=== PATIENT | female | born 1985 | race Caucasian/White ===

== ENCOUNTER 2017-04-20 15:52 | Emergency (ER) | payer OTHER ==
[~2017-04-20] VITALS: Ht 162.6 cm; Wt 68.9 kg
[2017-04-20] MEDS ORDERED: IV NORMAL SALINE 1,000ML 1,000 ML IV SCH (16:16)
[2017-04-20] MEDS ORDERED: ONDANSETRON PF 4 MG/2 ML VIAL. IV ONE (16:30)
[2017-04-20 16:46] LABS: BASO % 0 % (0-3); EOS % 1 % (0-3); HEMATOCRIT 41.3 % (36.0-47.0); HEMOGLOBIN 14.4 g/dL (12.0-15.5); LYMPH # 0.7 x10^3/uL (1.0-4.8); LYMPH % 13 % (24-48); MEAN CORPUSCULAR HEMOGLOBIN 31 pg (25-35); MEAN CORPUSCULAR HGB CONC 35 g/dL (31-37); MEAN CORPUSCULAR VOLUME 90 fL (79-100); MONO # 0.5 x10^3/uL (0.0-1.1); MONO % 10 % (0-9); NEUT # 4.1 x10^3uL (1.8-7.7); NEUT % 76 % (31-73); PLATELET COUNT 243 x10^3/uL (140-400); RED BLOOD COUNT 4.58 x10^6/uL (3.50-5.40); RED CELL DISTRIBUTION WIDTH 13.8 % (11.5-14.5); WHITE BLOOD COUNT 5.4 x10^3/uL (4.0-11.0)
[2017-04-20 16:57] LABS: ALBUMIN 3.6 g/dL (3.4-5.0); ALBUMIN/GLOBULIN RATIO 1.1 (1.0-1.7); CREATININE 0.6 mg/dL (0.6-1.0); GFR 118.2; POTASSIUM 3.7 mmol/L (3.5-5.1); TOTAL BILIRUBIN 0.5 mg/dL (0.2-1.0); TOTAL PROTEIN 6.8 g/dL (6.4-8.2)
--- NOTE | 2017-04-20 17:47 | PHYS DOC ---
Past History Past Medical History: No Pertinent History Past Surgical History: Appendectomy Alcohol Use: None Drug Use: None Adult General Chief Complaint Chief Complaint: NAUSEA/VOMITING/DIARRHEA HPI HPI Patient is a 31-year-old female who is 9 weeks sent from clinic for evaluation of nausea, vomiting, diarrhea, and abdominal pain. Patient has had quite a bit of vomiting and diarrhea for about 2 days. She's also had some pain in her upper mid abdomen and right upper quadrant for about 2-3 days, intermittent. The pain worsens when she eats. She has had some pain similar to this off and on. In August, she had right-sided abdominal pain and ended up having a diagnosis of acute appendicitis and had appendectomy. She's not sure if this pain today is similar to that pain in August or not, it might be. She may have had a couple of episodes similar since then but it has not bothered her a lot until the last couple of days. Patient denies fever or chills. No blood in her vomit. Patient is 9 weeks . She is a schoolteacher. No one else at home is sick. She has seen an OB doctor and everything is going well with her . She has not had a gallbladder ultrasound and has not had gallbladder evaluation. Review of Systems Review of Systems Constitutional: Denies fever or chills [] GI: As in history of present illness : Denies dysuria or hematuria ; she is 9 weeks Current Medications Current Medications Current Medications Medications (Trade) Dose Ordered Sig/Steven Start Time Stop Time Status Last Admin Dose Admin Ondansetron HCl (Zofran) 4 mg 1X ONCE 04/20/17 16:30 04/20/17 16:31 DC 04/20/17 16:30 4 MG Sodium Chloride 1,000 ml @ 1,000 mls/hr Q1H 04/20/17 16:16 04/20/17 17:15 DC 04/20/17 16:16 1,000 MLS/HR Allergies Allergies Allergies Coded Allergies Type Severity Reaction Last Updated Verified cefaclor Allergy Unknown 04/20/17 Yes Physical Exam Physical Exam Constitutional: Well developed, well nourished, no acute distress, non-toxic appearance. Alert, mentating normally, warm and dry. HENT: Normocephalic, atraumatic, bilateral external ears normal, nose normal. [ ] Eyes: conjunctiva normal, no discharge. [] Neck: Normal range of motion, no stridor. [] Cardiovascular:Heart rate regular rhythm, no murmur [] Lungs & Thorax: Bilateral breath sounds clear to auscultation [] Abdomen: Bowel sounds normal, soft, nondistended, no masses, no pulsatile masses. Mild tenderness to palpation in the upper mid abdomen, slightly lower than the epigastrium, and also in the right upper quadrant. Not necessarily positive Diana's but she does have right upper quadrant tenderness. Liver, gallbladder are not palpable. No rebound or guarding. Skin: Warm, dry, no erythema, no rash. [] Extremities: No tenderness, no cyanosis, no clubbing, ROM intact, no edema. [] Neurologic: Alert and oriented X 3, normal motor function, normal sensory function, no focal deficits noted. [] Current Patient Data Vital Signs Vital Signs Date Time Temp Pulse Resp B/P (MAP) Pulse Ox O2 Delivery O2 Flow Rate FiO2 04/20/17 16:06 98.3 74 20 97 Room Air Lab Results Laboratory Tests Test 04/20/17 16:30 White Blood Count 5.4 x10^3/uL (4.0-11.0) Red Blood Count 4.58 x10^6/uL (3.50-5.40) Hemoglobin 14.4 g/dL (12.0-15.5) Hematocrit 41.3 % (36.0-47.0) Mean Corpuscular Volume 90 fL (79-100) Mean Corpuscular Hemoglobin 31 pg (25-35) Mean Corpuscular Hemoglobin Concent 35 g/dL (31-37) Red Cell Distribution Width 13.8 % (11.5-14.5) Platelet Count 243 x10^3/uL (140-400) Neutrophils (%) (Auto) 76 % (31-73) H Lymphocytes (%) (Auto) 13 % (24-48) L Monocytes (%) (Auto) 10 % (0-9) H Eosinophils (%) (Auto) 1 % (0-3) Basophils (%) (Auto) 0 % (0-3) Neutrophils # (Auto) 4.1 x10^3uL (1.8-7.7) Lymphocytes # (Auto) 0.7 x10^3/uL (1.0-4.8) L Monocytes # (Auto) 0.5 x10^3/uL (0.0-1.1) Eosinophils # (Auto) 0.0 x10^3/uL (0.0-0.7) Basophils # (Auto) 0.0 x10^3/uL (0.0-0.2) Sodium Level 136 mmol/L (136-145) Potassium Level 3.7 mmol/L (3.5-5.1) Chloride Level 102 mmol/L (98-107) Carbon Dioxide Level 24 mmol/L (21-32) Anion Gap 10 (6-14) Blood Urea Nitrogen 7 mg/dL (7-20) Creatinine 0.6 mg/dL (0.6-1.0) Estimated GFR (Cockcroft-Gault) 118.2 BUN/Creatinine Ratio 12 (6-20) Glucose Level 96 mg/dL (70-99) Calcium Level 9.0 mg/dL (8.5-10.1) Total Bilirubin 0.5 mg/dL (0.2-1.0) Aspartate Amino Transferase (AST) 23 U/L (15-37) Alanine Aminotransferase (ALT) 24 U/L (14-59) Alkaline Phosphatase 57 U/L (46-116) Total Protein 6.8 g/dL (6.4-8.2) Albumin 3.6 g/dL (3.4-5.0) Albumin/Globulin Ratio 1.1 (1.0-1.7) Lipase 96 U/L (73-393) EKG EKG [] Radiology/Procedures Radiology/Procedures US Limited Impressions: Radiology report - No acute disease Course & Med Decision Making Course & Med Decision Making Pertinent Labs and Imaging studies reviewed. (See chart for details) 31-year-old female who is 9 weeks presents with multiple episodes of vomiting and diarrhea over the last 2 days, associated with some upper mid abdominal and right upper quadrant abdominal pain. She has had appendectomy. 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 She does have quite a bit of pain and discomfort so we will evaluate her gallbladder. Labs are entirely normal with no leukocytosis, no abnormality concerning for liver or gallbladder. She was given a liter of IV fluids and IV Zofran. She rested comfortably in the ED without further vomiting. Gallbladder ultrasound - negative, please refer to the report for more specifics Dragon Disclaimer Dragon Disclaimer This chart was dictated in whole or in part using Voice Recognition software in a busy, high-work load, and often noisy Emergency Department environment. It may contain unintended and wholly unrecognized errors or omissions. Departure Departure: Impression: Primary Impression: Gastroenteritis Disposition: HOME, SELF-CARE Condition: STABLE Referrals: PCP,NO (PCP) Patient Instructions: Viral Gastroenteritis Additional Instructions: Elijah was seen in the ED for Nausea/Vomiting. No emergency medical condition was found on history or physical exam. She did have normal labs and imaging. Her symptoms were most consistent with a Viral Gastroenteritis. She was advised to follow up with her primary care doctor in the next 3-5days and to return to the ED if she develops new or worsening symptoms. FAROOQ ARIZMENDI MD Apr 20, 2017 17:47 JUN MILLARD MD Apr 20, 2017 18:49
--- NOTE | 2017-04-20 18:10 | RAD ---
Ultrasound of the right upper quadrant of the abdomen 04/20/2017 CLINICAL HISTORY: Right upper quadrant abdominal and epigastric pain for 3 days. TECHNIQUE: A real-time ultrasound examination of the right upper quadrant abdomen was performed. Multiple images were obtained. FINDINGS: The gallbladder is well-distended. No gallstones are visualized. The gallbladder wall thickness is within normal limits. No pericholecystic fluid is seen. The common bile duct measures 3 mm in diameter which is within normal limits. The liver is normal in size measuring 16.5 cm in length. No focal abnormality of the liver is seen. The right kidney and visualized portions of pancreas are within normal limits. No free fluid is seen. IMPRESSION: Negative study. Electronically signed by: Yusuf Lutz MD (04/20/2017 6:06 PM) [facility]
[2017-04-20 18:43] VITALS: BP 112/61
== END 2017-04-20 19:08 | disposition home or self-care (01) ==
LOC: ER 15:52
DX: O99.611 Diseases of the digestive system complicating pregnancy, first trimester (principal); K52.9 Noninfective gastroenteritis and colitis, unspecified; Z3A.09 9 weeks gestation of pregnancy; Z90.49 Acquired absence of other specified parts of digestive tract; Z88.1 Allergy status to other antibiotic agents
CPT/HCPCS: 36415; 76705; 80053; 83690; 85025; 96361; 96374; 99285; J2405; J7030